=== PATIENT | female | born 1945 | race Caucasian/White ===

== ENCOUNTER 2017-10-05 07:56 | Outpatient (CLI) | payer MEDICARE ==
[2017-10-05 09:21] LABS: Hemoglobin 15.2 g/dL (12.0-16.0); Mean Corpuscular HGB CONC 32.6 g/dL (32.0-36.0); Mean Corpuscular Hemoglobin 29.8 pg (27.0-31.0); Mean Corpuscular Volume 91.5 fl (81.0-99.0); Mean Platelet Volume 8.4 fL (7.4-10.4); Platelet Count 197 thou/uL (130-400); RBC Distribution Width 11.6 % (11.5-14.5); Red Blood Cell (RBC) Count 5.09 mill/uL (4.20-5.40); White Blood Cell (WBC) Count 6.7 thou/uL (4.8-10.8)
[2017-10-05 09:28] LABS: Bilirubin Negative (Negative); Blood, Urine Negative (Negative); Clarity CLEAR (Clear); Glucose, Urine (Dipstick) Negative (Negative); Leukocyte Negative (Negative); Nitrite Negative (Negative); Protein, Urine (Dipstick) Negative (Neg-Trace); Urobilinogen 0.2 mg/dL (0.2-1.0)
[2017-10-05 09:30] LABS: Bacteria/HPF None Seen HPF (None Seen); Hyaline Casts/LPF 0-3 HYALINE CAST LPF (0-3 Hyaline); Pathc Cast-AUWi Flag 0.27 (0-2.49); Squamous Epithelial 0-3 HPF (0-3); WBC/HPF None Seen HPF (0-3)
[2017-10-05 09:37] LABS: INR-International Normal Ratio 0.9; Prothrombin Time 12.6 SEC (12.0-14.7)
[2017-10-05 09:41] LABS: Anion Gap 12 mmol/L (10-20); BUN (Urea Nitrogen) 15 mg/dL (9.8-20.1); Calc. Creatinine Clearance 0 mL/min (70-130); Calcium 10.2 mg/dL (7.8-10.44); Carbon Dioxide 31 mmol/L (23-31); Chloride 102 mmol/L (98-107); Estimated GFR-MDRD 60; Glucose 90 mg/dL (83-110); Potassium 3.7 mmol/L (3.5-5.1); Sodium 141 mmol/L (136-145)
[2017-10-05 10:21] LABS: RBC/HPF None Seen HPF (0-3)
--- NOTE | 2017-10-05 21:12 | EKG ---
Test Reason : Blood Pressure : / mmHG Vent. Rate : 060 BPM Atrial Rate : 060 BPM P-R Int : 172 ms QRS Dur : 094 ms QT Int : 464 ms P-R-T Axes : 072 003 081 degrees QTc Int : 464 ms Normal sinus rhythm Normal ECG No previous ECGs available Confirmed by JAVED THORNTON ([id number]) on 10/05/2017 9:11:48 PM Referred By: MIKI Confirmed By:JAVED THORNTON
== END 2017-10-05 07:57 | disposition home or self-care (01) ==
LOC: LABBT 07:56
PROVIDERS: ATTEND Orthopaedic Surgery
DX: Z01.810 Encounter for preprocedural cardiovascular examination (principal); Z01.812 Encounter for preprocedural laboratory examination; M17.0 Bilateral primary osteoarthritis of knee
CPT/HCPCS: 80048; 81001; 85027; 85610; 87081; 87086; 93005; 93010

== ENCOUNTER 2017-10-13 11:27 | Outpatient (CLI) | payer MEDICARE | END 2017-10-13 11:28 | disposition home or self-care (01) | LOC: LABBT 11:27 | PROVIDERS: ATTEND Orthopaedic Surgery | DX: Z01.818 Encounter for other preprocedural examination (principal); M17.0 Bilateral primary osteoarthritis of knee | CPT/HCPCS: 86850; 86900; 86901 ==

== ENCOUNTER 2017-10-18 05:30 | Day surgery (SDC) | payer MEDICARE ==
--- NOTE | 2017-10-14 11:11 | HP ---
DATE OF ADMISSION: 10/18/2017 HISTORY OF PRESENT ILLNESS: The patient is a 72-year-old female with a long history of progressive p roblems with both knees which have become progressively worse over the past 8 months. There has been no injury. Her right knee bothers her the most. She has pain with walking, which has progressed, a nd is now interfering with day to day activities including walking, getting dressed, and sleeping. S he has had progressive symptoms despite rest, restriction of activities, ibuprofen, tramadol, and pre vious cortisone injections. PAST MEDICAL HISTORY: The patient has history of hypertension. She also has a history of rosacea. ALLERGIES: She is allergic to LATEX. CURRENT MEDICATIONS: Lisinopril, amlodipine, hydrochlorothiazide, metronidazole cream for rosacea, t ramadol, and ibuprofen. FAMILY HISTORY: Otherwise unremarkable. SOCIAL HISTORY: Otherwise unremarkable. REVIEW OF SYSTEMS: Otherwise unremarkable. PHYSICAL EXAMINATION: GENERAL: Reveals a healthy female. HEENT: Unremarkable. NECK: Supple. CHEST: Clear. HEART: Regular rate and rhythm. ABDOMEN: Soft, nontender. PELVIC: Deferred. RECTAL: Deferred. BREAST: Deferred. EXTREMITIES: Pertinent findings related to her knees. There is puffiness, but no definite effusion of either knee. There is mild to moderate varus deformity. There is tenderness and crepitus over th e medial joint lines, right greater than left. Range of motion is 0 to 125 degrees. There is slight antalgic gait. Neurovascular exam is intact. There is no instability. Pulses are 2+. No pain wit h range of motion of either hip. LABORATORY AND X-RAY FINDINGS: X-rays of both knees reveal bone on bone collapse medially. IMPRESSION: 1. Degenerative arthritis, both knees, right symptomatic more than left. 2. History of hypertension. 3. History of rosacea. PLAN: Right total knee replacement. She may eventually require staged left total knee replacement. The nature of the surgery, length of recovery, and potential complications such as infection, loss o f motion, incomplete relief, delayed wound healing, neurovascular injury, thromboembolic phenomenon, possible transfusion, and need for revision have been discussed in detail.
[2017-10-18] MEDS ORDERED: Tranexamic Acid 1,000 MG/100 ML BAG ONE ×2 (06:02→09:02)
[2017-10-18] MEDS ORDERED: CEFAZOLIN/Water 2 GM/20 ML SYRINGE ONE (06:02)
[2017-10-18] MEDS ORDERED: Bupivacaine 0.25% HCL 30 ML VIAL ONE (06:17)
[2017-10-18] MEDS ORDERED: Lidocaine 1% (PF) 30 ML VIAL ONE (06:28)
[2017-10-18] MEDS ORDERED: Fentanyl 100 MCG/2 ML VIAL ONE (06:28)
[2017-10-18] MEDS ORDERED: Midazolam HCl 2 mg/2 ml Vial ONE (06:28)
[2017-10-18] MEDS ORDERED: traMADol HCl 50 MG TAB PO PRN ×2 (07:14)
[2017-10-18] MEDS ORDERED: Promethazine HCl 25 MG/ML VIAL IM PRN ×2 (07:14→07:27)
[2017-10-18] MEDS ORDERED: Zolpidem Tartrate 5 MG TAB PO PRN ×2 (07:14→09:58)
[2017-10-18] MEDS ORDERED: HYDROcodone/Acetaminophen 5/325 mg Tablet PO PRN ×2 (07:14)
[2017-10-18] MEDS ORDERED: Ketorolac Tromethamine 30 MG/ML VIAL IVP PRN (07:14)
[2017-10-18] MEDS ORDERED: Ondansetron HCl/PF 4 MG/2 ML Vial IVP PRN ×3 (07:14→09:58)
[2017-10-18] MEDS ORDERED: Ropivacaine 0.2% 550 ML 550 ML NERVE BLCK SCH (07:14)
[2017-10-18] MEDS ORDERED: Fentanyl 100 MCG/2 ML VIAL IV PRN (07:15)
[2017-10-18] MEDS ORDERED: Promethazine HCl 25 MG/ML VIAL SLOW IVP PRN ×2 (07:27→09:58)
[2017-10-18] MEDS ORDERED: Tranexamic Acid 1,000 MG in Sodium Chloride 0.9% 100 ML IVPB SCH ×2 (09:00→09:58)
--- NOTE | 2017-10-18 09:17 | OP ---
DATE OF PROCEDURE: 10/18/2017 SURGEON: Sigifredo Arauz M.D. ANALYSIS REPORTING DEVELOPER: FRITZ Almazan. ANESTHESIA: General plus femoral sciatic nerve blocks. PREOPERATIVE DIAGNOSIS: Degenerative arthritis, right knee. POSTOPERATIVE DIAGNOSIS: Degenerative arthritis, right knee. PROCEDURES: Right total knee replacement with computer-assisted navigation with cemented Triathlon c omponents (#3 femoral component, #3 universal tibial baseplate with 9 mm CS plastic insert, and A29 all plastic patellar component). NARRATIVE REPORT: After satisfactory anesthesia was induced in supine position, sequential compressi on device was placed on the non-operative leg throughout the procedure. The right leg was then prepp ed and draped in the routine sterile fashion. The right leg was elevated, exsanguinated with an Esme rch bandage, and the tourniquet inflated to 250 mmHg. A gently curved medial parapatellar incision w as made and carried down to subcutaneous tissues, and bleeding points controlled with Bovie cautery. Medial parapatellar arthrotomy was performed. Patella was dislocated laterally and portions of the fat pad were excised for exposure. There was marked degenerative arthritis of the knee, especially m edially, with large areas of exposed bone. Meniscal remnants and osteophytes were removed. Using th e appropriate guides and the [employer] pinless navigation system, the distal femoral and proximal tibia l articular surfaces were excised with an oscillating saw to accept the trial components. It was fel t that a #3 femoral component and #3 tibial baseplate with a 9 mm CS plastic insert gave appropriate size, fit, stability, and correction of the preoperative deformity. The patellar articular surface w as excised to accept an all plastic A29 patellar component. The trial components were removed. The knee was copiously irrigated with pulsatile lavage and the bony surfaces thoroughly cleaned and dried . The permanent components were then cemented in a single stage using 1 package of cement premixed w ith 1 gram of tobramycin powder. Excess cement was removed. There was again good fit and stability of the components. The knee was again copiously irrigated. The incision line was infiltrated with 3 0 mL of 0.25% Marcaine. The medial retinaculum and quadriceps mechanism was closed with interrupted #2 Vicryl and a running #2 Quill. Subcutaneous tissues were closed with running 0 Quill suture and t he skin closed with running subcuticular 3-0 Monoderm and SurgiSeal skin adhesive. A sterile bulky c ompressive dressing was applied and the tourniquet deflated after 63 minutes. The foot promptly pink ed up and a sequential compression device was applied to the operated leg. She was awakened and take n to recovery room in stable condition. There were no apparent intraoperative complications. The es timated blood loss was less than 100 mL.
[2017-10-18] MEDS ORDERED: Aspirin 81 mg Enteric Coated Tablet PO SCH ×2 (09:58→10:30)
[2017-10-18] MEDS ORDERED: Multivitamin W/ Minerals 1 TAB PO SCH ×2 (09:58→10:30)
[2017-10-18] MEDS ORDERED: Senokot S 8.6-50 MG TAB PO SCH ×2 (09:58→10:30)
[2017-10-18] MEDS ORDERED: Non-Formulary Item 1 EACH (Lisinopril [Lisinopril] 1 TAB) PO SCH (09:58)
[2017-10-18] MEDS ORDERED: Amlodipine 5 MG TAB PO SCH ×3 (09:58→11:00)
[2017-10-18] MEDS ORDERED: Fentanyl 100 MCG/2 ML VIAL SLOW IVP PRN ×2 (09:58)
[2017-10-18] MEDS ORDERED: Acetaminophen 325 MG TAB PO PRN (09:58)
[2017-10-18] MEDS ORDERED: Ferrous Gluconate 324 MG TAB PO SCH ×2 (09:58→10:30)
[2017-10-18] MEDS ORDERED: HYDROcodone/Acetaminophen 10/325 mg Tablet PO PRN (09:58)
[2017-10-18] MEDS ORDERED: diphenhydrAMINE 25 MG CAP PO PRN (09:58)
--- NOTE | 2017-10-18 10:59 | RAD ---
ONE VIEW RIGHT KNEE: HISTORY: Status post right knee arthroplasty. COMPARISON: None. FINDINGS: A single view of the right knee demonstrates postsurgical changes. No obvious malalignment on the si ngle image provided. IMPRESSION: Postsurgical changes. POS: GERA
[2017-10-18] MEDS ORDERED: Hydrochlorothiazide 25 MG TAB PO SCH (11:00)
[2017-10-18] MEDS ORDERED: Lisinopril 10 MG TAB PO SCH (11:00)
[2017-10-18] MEDS: Sodium Chloride 0.9% 1,000 ML IV SCH ×3 (11:13→20:41)
[2017-10-18] MEDS ORDERED: Ropivacaine 0.5% HCl/PF (150 MG/30 ML VIAL) ONE (14:00)
[2017-10-18] MEDS ORDERED: Ropivacaine 0.2% HCl/PF (40 MG/20 ML VIAL) ONE (14:00)
[2017-10-18] MEDS: Ketorolac Tromethamine 30 MG/ML VIAL IVP SCH ×2 (14:32→21:00)
[2017-10-18] MEDS ORDERED: Ondansetron HCl/PF 4 MG/2 ML Vial ONE (14:37)
[2017-10-18] MEDS ORDERED: Lidocaine 1% PF 5 ML VIAL ONE (14:37)
[2017-10-18] MEDS ORDERED: PROPOFOL 200 MG/20 ML VIAL ONE (14:37)
[2017-10-18] MEDS: CEFAZOLIN/Water 2 GM/20 ML SYRINGE SLOW IVP SCH ×2 (14:37→21:00)
[2017-10-18] MEDS ORDERED: Ketorolac Tromethamine 30 MG/ML VIAL ONE (14:37)
[2017-10-18] MEDS ORDERED: Vancomycin HCl 1 GM in Premix Bag 1 BAG IVPB SCH (18:00)
--- NOTE | 2017-10-18 18:26 | PDOC.PN ---
- Subjective Encounter Start Date: 10/18/17 Encounter Start Time: 14:00 Subjective: pt up in bed no complains - Objective Vital Signs & Weight: Vital Signs (12 hours) Temp Pulse Resp BP BP Pulse Ox 10/18/17 14:12 150/70 H 10/18/17 11:44 150/70 H 10/18/17 11:14 56 L 10/18/17 10:52 97.7 F 56 L 12 98 10/18/17 09:45 97.7 F 56 L 12 178/75 H 98 Weight Weight 124 lb Phys Exam - Physical Examination HEENT: PERRLA Neck: no nodes Respiratory: no wheezing, no rales Cardiovascular: RRR, no significant murmur Gastrointestinal: soft, non-tender Musculoskeletal: no edema (right knee wrapped, pedal pulse present) Neurological: non-focal Dx/Plan (1) HTN (hypertension) Code(s): I10 - ESSENTIAL (PRIMARY) HYPERTENSION Status: Acute Plan: stable will continue meds for now. (2) Anemia Code(s): D64.9 - ANEMIA, UNSPECIFIED Status: Acute Plan: anticipate anemia from surgery. will check cbc in am (3) Knee joint replacement status Code(s): Z96.659 - PRESENCE OF UNSPECIFIED ARTIFICIAL KNEE JOINT Status: Acute Plan: s/p right total knee replacement, pt has epidural on stool softeners. dt ppx per surgeon - Plan * .
[2017-10-18] MEDS: Senokot S 8.6-50 MG TAB PO SCH (20:42)
[2017-10-18] MEDS: Ferrous Gluconate 324 MG TAB PO SCH (20:43)
[2017-10-18] MEDS: Aspirin 81 mg Enteric Coated Tablet PO SCH (20:43)
[2017-10-18] MEDS ORDERED: Estrogens, Conjugated 30 GM TUBE VAG SCH (21:00)
[2017-10-18] MEDS: HYDROcodone/Acetaminophen 10/325 mg Tablet PO PRN (23:23)
[2017-10-19] MEDS: HYDROcodone/Acetaminophen 10/325 mg Tablet PO PRN ×4 (03:29→15:32)
[2017-10-19] MEDS: Ketorolac Tromethamine 30 MG/ML VIAL IVP SCH ×3 (05:03→21:39)
[2017-10-19 06:01] LABS: Band 2 % (5-11); Hemoglobin 11.9 g/dL (12.0-16.0); Lymphocytes 20 % (21-51); MDiff Complete? YES; Mean Corpuscular HGB CONC 33.1 g/dL (32.0-36.0); Mean Corpuscular Hemoglobin 30.1 pg (27.0-31.0); Mean Corpuscular Volume 90.8 fl (81.0-99.0); Mean Platelet Volume 8.1 fL (7.4-10.4); Monocytes 9 % (0-10); Neutrophil 64 % (42-75); Platelet Count 121 thou/uL (130-400); RBC Distribution Width 11.5 % (11.5-14.5); Reactive Lymphocytes 5 % (0-10); Red Blood Cell (RBC) Count 3.95 mill/uL (4.20-5.40); White Blood Cell (WBC) Count 8.3 thou/uL (4.8-10.8)
[2017-10-19 06:20] LABS: Anion Gap 7 mmol/L (10-20); BUN (Urea Nitrogen) 10 mg/dL (9.8-20.1); Calc. Creatinine Clearance 58 mL/min (70-130); Calcium 8.5 mg/dL (7.8-10.44); Carbon Dioxide 31 mmol/L (23-31); Chloride 102 mmol/L (98-107); Estimated GFR-MDRD 74; Glucose 120 mg/dL (83-110); Sodium 137 mmol/L (136-145)
[2017-10-19 06:31] LABS: Potassium 2.8 mmol/L (3.5-5.1)
[2017-10-19] MEDS: Potassium Chloride 20 MEQ TAB PO SCH ×4 (07:07→18:09)
[2017-10-19] MEDS: Multivitamin W/ Minerals 1 TAB PO SCH (07:57)
[2017-10-19] MEDS: Ferrous Gluconate 324 MG TAB PO SCH ×2 (07:57→21:38)
[2017-10-19] MEDS: Aspirin 81 mg Enteric Coated Tablet PO SCH ×2 (07:57→21:38)
[2017-10-19] MEDS: Hydrochlorothiazide 25 MG TAB PO SCH (07:58)
[2017-10-19] MEDS: Senokot S 8.6-50 MG TAB PO SCH ×2 (07:58→21:38)
[2017-10-19] MEDS: Lisinopril 20 MG TAB PO SCH (07:59)
[2017-10-19] MEDS: Amlodipine 5 MG TAB PO SCH (08:00)
[2017-10-19] MEDS ORDERED: hydrALAZINE 20 MG/ML VIAL SLOW IVP PRN (08:39)
[2017-10-19] MEDS: traMADol HCl 50 MG TAB PO PRN ×2 (08:58→18:08)
[2017-10-19] MEDS ORDERED: Lisinopril 10 MG TAB PO SCH (09:00)
[2017-10-19] MEDS ORDERED: Hydrochlorothiazide 25 MG TAB PO SCH (09:00)
[2017-10-19 12:20] VITALS: BMI 24.2
[2017-10-19 15:21] LABS: Anion Gap 12 mmol/L (10-20); BUN (Urea Nitrogen) 10 mg/dL (9.8-20.1); Calc. Creatinine Clearance 55 mL/min (70-130); Calcium 9.2 mg/dL (7.8-10.44); Carbon Dioxide 29 mmol/L (23-31); Chloride 97 mmol/L (98-107); Estimated GFR-MDRD 71; Glucose 148 mg/dL (83-110); Potassium 3.5 mmol/L (3.5-5.1); Sodium 134 mmol/L (136-145)
--- NOTE | 2017-10-19 15:58 | PDOC.PN ---
- Subjective Encounter Start Date: 10/19/17 Encounter Start Time: 13:00 Subjective: pt up in bed complains of mild pain - Objective Vital Signs & Weight: Vital Signs (12 hours) Temp Pulse Resp BP BP Pulse Ox 10/19/17 13:00 55 L 157/68 H 10/19/17 12:00 98.8 F 55 L 18 194/73 H 96 10/19/17 11:24 55 L 194/73 H 10/19/17 08:00 99.0 F 58 L 18 180/72 H 180/72 H 96 10/19/17 07:59 180/72 H 10/19/17 04:00 98.8 F 58 L 18 166/71 H 98 Weight Admit Weight 124 lb Weight 124 lb I&O: 10/18/17 10/19/17 10/20/17 06:59 06:59 06:59 Intake Total 3091.0 480 Output Total 1850 500 Balance 1241.0 -20 Result Diagrams: 10/19/17 05:25 10/19/17 14:46 Phys Exam - Physical Examination HEENT: PERRLA, moist MMs Neck: no nodes, no JVD Respiratory: no wheezing, no rales Cardiovascular: RRR, no significant murmur Gastrointestinal: soft, non-tender Musculoskeletal: no edema (right knee dressing intact) Neurological: non-focal Dx/Plan (1) HTN (hypertension) Code(s): I10 - ESSENTIAL (PRIMARY) HYPERTENSION Status: Acute Plan: will continue pt's home meds. will add prn. high bp most likely due to pain. (2) Anemia Code(s): D64.9 - ANEMIA, UNSPECIFIED Status: Acute Plan: stable hh will continue to monitor (3) Knee joint replacement status Code(s): Z96.659 - PRESENCE OF UNSPECIFIED ARTIFICIAL KNEE JOINT Status: Acute Plan: per ortho (4) Hypokalemia Code(s): E87.6 - HYPOKALEMIA Status: Acute Plan: will replace - Plan * .
[2017-10-19] MEDS: Sodium Chloride 0.9% 1,000 ML IV SCH (16:35)
[2017-10-20] MEDS: Sodium Chloride 0.9% 1,000 ML IV SCH ×2 (02:41→12:19)
[2017-10-20] MEDS: traMADol HCl 50 MG TAB PO PRN ×2 (03:16→09:53)
[2017-10-20 04:50] LABS: Anion Gap 11 mmol/L (10-20); BUN (Urea Nitrogen) 10 mg/dL (9.8-20.1); Calc. Creatinine Clearance 57 mL/min (70-130); Carbon Dioxide 26 mmol/L (23-31); Chloride 101 mmol/L (98-107); Estimated GFR-MDRD 73; Glucose 141 mg/dL (83-110); Potassium 4.2 mmol/L (3.5-5.1); Sodium 134 mmol/L (136-145)
[2017-10-20 05:04] LABS: Band 10 % (5-11); Hemoglobin 12.7 g/dL (12.0-16.0); Lymphocytes 13 % (21-51); MDiff Complete? YES; Mean Corpuscular HGB CONC 33.9 g/dL (32.0-36.0); Mean Corpuscular Hemoglobin 30.9 pg (27.0-31.0); Mean Corpuscular Volume 91.3 fl (81.0-99.0); Monocytes 6 % (0-10); Neutrophil 70 % (42-75); Platelet Count 135 thou/uL (130-400); RBC Distribution Width 11.6 % (11.5-14.5); White Blood Cell (WBC) Count 11.6 thou/uL (4.8-10.8)
[2017-10-20] MEDS: Ketorolac Tromethamine 30 MG/ML VIAL IVP SCH (06:13)
[2017-10-20] MEDS: Potassium Chloride 20 MEQ TAB PO SCH (08:32)
[2017-10-20] MEDS: Ferrous Gluconate 324 MG TAB PO SCH (08:33)
[2017-10-20] MEDS: Lisinopril 20 MG TAB PO SCH (08:33)
[2017-10-20] MEDS: Amlodipine 5 MG TAB PO SCH (08:34)
[2017-10-20] MEDS: Multivitamin W/ Minerals 1 TAB PO SCH (08:34)
[2017-10-20] MEDS: Senokot S 8.6-50 MG TAB PO SCH (08:34)
[2017-10-20] MEDS: Hydrochlorothiazide 25 MG TAB PO SCH (08:35)
[2017-10-20] MEDS: Aspirin 81 mg Enteric Coated Tablet PO SCH (08:35)
--- NOTE | 2017-10-20 09:53 | RAD ---
PORTABLE CHEST ONE VIEW: Date: 10-20-17 Time: 8:47 a.m. History: Elevated LFTs. FINDINGS: The heart size is enlarged. The lungs are expanded without focal areas of consolidation, pneumothorax , jordan pulmonary edema, or pleural effusions. IMPRESSION: Cardiomegaly. POS: GERA
[2017-10-20 10:59] LABS: Bilirubin Negative (Negative); Blood, Urine Negative (Negative); Clarity CLOUDY (Clear); Glucose, Urine (Dipstick) Negative (Negative); Leukocyte Small (Negative); Nitrite Negative (Negative); Protein, Urine (Dipstick) Negative (Neg-Trace); Specific Gravity, Urine 1.013 (1.002-1.036); Urobilinogen 0.2 mg/dL (0.2-1.0); pH, Urine 7.5 (5.0-9.0)
[2017-10-20 11:04] LABS: RBC/HPF 0-3 HPF (0-3)
[2017-10-20 11:05] LABS: Bacteria/HPF Rare-Few HPF (None Seen); Hyaline Casts/LPF NONE SEEN LPF (0-3 Hyaline)
[2017-10-20 11:50] VITALS: BP 133/73; TEMP 99
[2017-10-20] MEDS ORDERED: Cephalexin 250 MG CAP PO SCH ×2 (13:00→21:00)
--- NOTE | 2017-10-20 14:12 | PDOC.PN ---
- Subjective Encounter Start Date: 10/20/17 Encounter Start Time: 11:00 Subjective: pt up in bed no complains - Objective Vital Signs & Weight: Vital Signs (12 hours) Temp Pulse Resp BP BP Pulse Ox 10/20/17 11:26 99 F 80 14 133/73 98 10/20/17 08:34 62 10/20/17 08:33 172/80 H 10/20/17 08:00 98.9 F 62 14 98 10/20/17 07:34 98.9 F 63 14 178/80 H 98 10/20/17 04:00 99.1 F 62 18 139/78 96 Weight Admit Weight 124 lb Weight 124 lb I&O: 10/19/17 10/20/17 10/21/17 06:59 06:59 06:59 Intake Total 3091.0 2801.0 Output Total 1850 2250 900 Balance 1241.0 551.0 -900 Result Diagrams: 10/20/17 03:20 10/20/17 03:20 Phys Exam - Physical Examination HEENT: PERRLA, moist MMs Neck: no nodes, no JVD Respiratory: no wheezing, no rales Cardiovascular: RRR, no significant murmur Gastrointestinal: soft, non-tender Musculoskeletal: pulses present, edema present (mild, right knee dressing intact ) Neurological: non-focal Psychiatric: normal affect Dx/Plan (1) HTN (hypertension) Code(s): I10 - ESSENTIAL (PRIMARY) HYPERTENSION Status: Acute Plan: stable (2) Anemia Code(s): D64.9 - ANEMIA, UNSPECIFIED Status: Acute Plan: stable continue to monitor (3) Knee joint replacement status Code(s): Z96.659 - PRESENCE OF UNSPECIFIED ARTIFICIAL KNEE JOINT Status: Acute (4) Hypokalemia Code(s): E87.6 - HYPOKALEMIA Status: Acute Plan: resolved (5) Leukocytosis Code(s): D72.829 - ELEVATED WHITE BLOOD CELL COUNT, UNSPECIFIED Status: Acute Plan: pt had elevated wbc with some bands, pt had a UA on 10/05 which indicated beta hemolytic strep. According to the pt she was not on any abx. will check UA and get cxr. Cxr mild cardiomegaly, UA mild leukocytes. pt was discharged home without notifying me even though i had spoken with the nurse about what i was ordering. will call in rx for keflex. pt was asked to follow up with her pcp for cardiomegaly. - Plan * .
--- NOTE | 2017-10-21 11:52 | DIS ---
DATE OF ADMISSION: 10/18/2017 DATE OF DISCHARGE: 10/20/2017 DISCHARGE DISPOSITION: To home. ADMISSION DIAGNOSIS: End-stage tricompartmental osteoarthritis, right knee. DISCHARGE DIAGNOSIS: End-stage tricompartmental osteoarthritis, right knee. OPERATIVE PROCEDURE: Right total knee arthroplasty. CONSULTANTS: [facility] for acute postop pain management and [facility] fo r medical management. BRIEF CLINICAL HISTORY: The patient was admitted to [facility] and underwent the above elective procedure on the date of admission without intra, braden, or postoperative complicat ion. The hospital course was unremarkable. At the time of discharge, the patient is afebrile, ambul atory without assistance utilizing a rolling walker in a full weightbearing fashion, tolerating a reg ular diet, and voiding without difficulty. The patient's incision is clean and closed without any er ythema. DISCHARGE MEDICATIONS: Please see medication reconciliation form. We will be happy to see the patient on an as needed basis between now and her next scheduled appointm ent. CONDITION ON DISCHARGE: Stable. PROGNOSIS: Good.
== END 2017-10-20 13:20 | disposition home or self-care (01) ==
LOC: SDC 05:30 → SURG B 07:17 → SDC 10-20 13:20
PROVIDERS: ATTEND Orthopaedic Surgery
PROC: 0SRC0J9 Replacement of Right Knee Joint with Synthetic Substitute, Cemented, Open Approach (ICD-10-PCS; principal; 2017-10-18)
PROC: 8E0YXBZ Computer Assisted Procedure of Lower Extremity (ICD-10-PCS; 2017-10-18)
DX: M17.0 Bilateral primary osteoarthritis of knee (principal); I10 Essential (primary) hypertension; L71.9 Rosacea, unspecified; M81.0 Age-related osteoporosis without current pathological fracture; F41.9 Anxiety disorder, unspecified; Z79.2 Long term (current) use of antibiotics; Z79.890 Hormone replacement therapy; Z79.899 Other long term (current) drug therapy; Z91.040 Latex allergy status; Z88.6 Allergy status to analgesic agent; Z96.1 Presence of intraocular lens; Z90.710 Acquired absence of both cervix and uterus
CPT/HCPCS: 20985; 27447; 71045; 73560; 80048 ×2; 83735; 85007 ×2; 85027 ×2; 97110 ×2; 97116 ×3; 97139 ×2; 97150; 97530; A4306; C1713; C1776; G8978; G8979; 36415; 81003; 81015; J0360; J1885; J2001; J2250; J2405; J2704; J2795; J3010; J3370; S0020

== ENCOUNTER 2022-11-10 11:50 | Outpatient (CLI) | payer MEDICARE ==
[2022-11-10 14:30] LABS: #Basophils 0.1 10x3/uL (0.0-0.2); #Eosinphils 0.1 10x3/uL (0.0-0.5); #Monocytes 0.4 10x3/uL (0.0-1.1); %Basophils 1.2 % (0.0-2.0); %Eosinophils 1.2 % (0.0-6.0); %Lymphocytes 37.6 % (18.0-47.0); %Monocytes 7.6 % (0.0-10.0); %Neutrophils 52.2 % (40.0-75.0); Hemoglobin 14.5 g/dL (12.0-15.5); Mean Corpuscular HGB CONC 32.7 g/dL (32.0-36.0); Mean Corpuscular Hemoglobin 29.5 pg (27.0-33.0); Mean Corpuscular Volume 90.2 fl (81.6-98.3); Mean Platelet Volume 10.8 fl (7.4-10.4); Platelet Count 191 10x3/uL (150-450); RBC Distribution Width 12.5 % (11.5-14.5); Red Blood Cell (RBC) Count 4.92 10x6/uL (3.90-5.03); White Blood Cell (WBC) Count 5.8 10x3/uL (3.5-10.5)
[2022-11-10 15:11] LABS: Anion Gap 15 mmol/L (10-20); BUN (Urea Nitrogen) 14 mg/dL (9.8-20.1); Calc. Creatinine Clearance 0 mL/min (70-130); Calcium 9.4 mg/dL (7.8-10.44); Carbon Dioxide 26 mmol/L (23-31); Chloride 105 mmol/L (98-107); Estimated GFR 63; Glucose 115 mg/dL (83-110); Potassium 3.8 mmol/L (3.5-5.1); Sodium 142 mmol/L (136-145)
== END 2022-11-10 11:51 | disposition home or self-care (01) ==
LOC: LABBT 11:50
PROVIDERS: ATTEND Specialist
DX: Z01.818 Encounter for other preprocedural examination (principal); D05.11 Intraductal carcinoma in situ of right breast
CPT/HCPCS: 71046; 80048; 85025; 93005; 93010

== ENCOUNTER 2022-11-16 07:05 | Day surgery (SDC) | payer MEDICARE ==
[2022-11-12 13:12] VITALS: BMI 21.1
[2022-11-16] MEDS ORDERED: Ketorolac Tromethamine 30 MG/ML VIAL ONE (08:21)
[2022-11-16] MEDS ORDERED: Acetaminophen 500 MG TAB ONE (08:21)
[2022-11-16] MEDS ORDERED: Bupivacaine/Epinephrine 0.25% 30 ML VIAL ONE (11:58)
[2022-11-16] MEDS ORDERED: Methylene Blue 50 MG/10 ML AMPUL ONE (11:58)
[2022-11-16] MEDS ORDERED: Lidocaine 1% (PF) 30 ML VIAL ONE (11:58)
[2022-11-16] MEDS ORDERED: Lidocaine 2% PF 5 ML VIAL ONE (12:07)
[2022-11-16] MEDS ORDERED: CEFAZOLIN 2 GM VIAL ONE (12:12)
[2022-11-16] MEDS ORDERED: Sodium Chloride 0.9% 100 ML ONE (12:12)
[2022-11-16] MEDS ORDERED: fentaNYL PF 100 MCG/2 ML SYRINGE ONE (12:27)
[2022-11-16] MEDS ORDERED: HYDROmorphone 0.5 MG/0.5 ML SYRINGE ONE (12:27)
[2022-11-16] MEDS ORDERED: Dexamethasone 20 MG/5 ML VIAL ONE (12:36)
[2022-11-16] MEDS ORDERED: Ondansetron PF 4 MG/2 ML Vial ONE (12:36)
[2022-11-16] MEDS ORDERED: PROPOFOL 200 MG/20 ML VIAL ONE (12:36)
[2022-11-16] MEDS ORDERED: Glycopyrrolate 0.2 MG/ML 5 ML SYRINGE ONE (12:36)
[2022-11-16] MEDS ORDERED: Lidocaine 1% PF 5 ML VIAL ONE (12:36)
[2022-11-16] MEDS ORDERED: ePHEDrine 50 MG/ML VIAL ONE (12:36)
== END 2022-11-16 14:50 | disposition home or self-care (01) ==
LOC: SDC 07:05
PROVIDERS: ATTEND Specialist
PROC: 0HBT0ZZ Excision of Right Breast, Open Approach (ICD-10-PCS; principal; 2022-11-16)
DX: D05.11 Intraductal carcinoma in situ of right breast (principal); I10 Essential (primary) hypertension; Z88.6 Allergy status to analgesic agent; Z91.040 Latex allergy status; Z79.899 Other long term (current) drug therapy
CPT/HCPCS: 19281; 19301; 76098; Q9968; 88307; J1100; J1170; J1885; J2001; J2405; J2704; J3490